=== PATIENT | male | born 1945 | race Caucasian/White ===

== ENCOUNTER 2020-03-17 07:23 | Day surgery (SDC) | payer MEDICARE, OTHER ==
[~2020-03-17 07:23] MED LIST: Cefuroxime 10 MG/ML SYRINGE EYERT SCH; Lidocaine 1% PF 2 ML SDV INJECT SCH; Pilocarpine 4% Ophth Soln 15 ML Bot EYERT SCH
[2020-03-17] MEDS: Polymyxin B/Trimethoprim 10 ML Bottle EYERT SCH ×3 (07:24→08:56)
[2020-03-17] MEDS: Brimonidine 0.2% Ophth Soln 5 ML Bottle EYERT SCH ×3 (07:28→08:56)
[2020-03-17] MEDS: Phenylephrine 2.5% Ophth Soln 15 ML Bot EYERT SCH ×5 (07:33→08:38)
--- NOTE | 2020-03-17 07:34 | PCM.PREANE ---
Preanesthetic Assessment - Anesthesia/Transfusion/Family Hx Anesthesia History: Prior Anesthesia Without Reaction Family History of Anesthesia Reaction: No Transfusion History: Prior Transfusion Without Reaction - Review of Systems General: No Symptoms, Other (high cholesterol) Pulmonary: No Symptoms Cardiovascular: Other (hx of rca stent x3 years ago, HTN) Gastrointestinal: No Symptoms Neurological: Numbness, Tingling - Physical Assessment NPO Status Date: 03/17/20 NPO Status Time: 05:00 ASA Class: 2 Mental Status: Alert & Oriented x3 Dentition: Reports: Dentures, Partial Thyro-Mental Finger Breadths: 3 Mouth Opening Finger Breadths: 3 ROM/Head Extension: Full Lungs: Clear to Auscultation, Normal Respiratory Effort Cardiovascular: Regular Rate, Regular Rhythm - Allergies Allergies/Adverse Reactions: Allergies Allergy/AdvReac Type Severity Reaction Status Date / Time No Known Allergies Allergy Verified 03/16/20 10:17 - Blood Blood Available: No Product(s) Available: None - Anesthesia Plan Pre-Op Medication Ordered: None - Acknowledgements Anesthesia Type Planned: MAC Pt an Appropriate Candidate for the Planned Anesthesia: Yes Alternatives and Risks of Anesthesia Discussed w Pt/Guardian: Yes Pt/Guardian Understands and Agrees with Anesthesia Plan: Yes PreAnesthesia Questionnaire - HOME MEDS Home Medications: Home Meds Aspirin 81 mg PO DAILY 03/16/20 [History] Carboxymethylcellulose Sodium [Artificial Tears] 1 drop EYEBOTH ASDIRECTED PRN 03/16/20 [History] Dutasteride [Avodart] 0.5 mg PO DAILY 03/16/20 [History] Naproxen 1 dose PO ASDIRECTED PRN 03/16/20 [History] Rosuvastatin Calcium 20 mg PO DAILY 03/16/20 [History] Tamsulosin HCl 0.4 mg PO BID 03/16/20 [History] lisinopriL [Lisinopril] 5 mg PO DAILY 03/16/20 [History] - CURRENT (IN HOUSE) MEDS Current Meds: Current Medications Brimonidine Tartrate (Alphagan 0.2% Ophth Soln) 0 ml EYERT ASDIRECTED ARSLAN Stop: 03/17/20 23:00 Cefuroxime Sodium (Zinacef) 0 mg EYERT ASDIRECTED ARSLAN Stop: 03/17/20 23:00 Lidocaine HCl (Xylocaine-Mpf 1%) 0 ml INJECT ASDIRECTED ARSLAN Stop: 03/17/20 23:00 Phenylephrine HCl (Timothy-Synephrine 2.5% Ophth Soln) 0 ml EYERT ASDIRECTED ARSLAN Stop: 03/17/20 23:00 Pilocarpine HCl (Pilocar 4% Ophth Soln) 0 ml EYERT ASDIRECTED ARSLAN Stop: 03/17/20 23:00 Polymyxin/Trimethoprim Sulfate (Polytrim Ophth Soln) 0 ml EYERT ASDIRECTED ARSLAN Stop: 03/17/20 23:00 Last Admin: 03/17/20 07:23 Dose: 1 drop Documented by: Tetracaine HCl (Tetracaine 0.5% Steri-Unit Betsey) 0 ml EYEBOTH ASDIRECTED ARSLAN Stop: 03/17/20 23:00 Tropicamide (Mydriacyl 1% Ophth Soln) 0 ml EYERT ASDIRECTED [facility] Stop: 03/17/20 23:00
[2020-03-17] MEDS: Tropicamide 1% Ophth Soln 15 ML Bottle EYERT SCH ×4 (07:38→08:17)
[2020-03-17] MEDS: Tetracaine HCl/PF 0.5% 4 ML Bottle EYEBOTH SCH ×4 (08:18→08:44)
--- NOTE | 2020-03-17 09:01 | PCM48HPAN ---
Post Anesthesia Note - EVALUATION WITHIN 48HRS OF ANESTHETIC Vital Signs in Normal Range: Yes Patient Participated in Evaluation: Yes Respiratory Function Stable: Yes Airway Patent: Yes Cardiovascular Function Stable: Yes Hydration Status Stable: Yes Pain Control Satisfactory: Yes Nausea and Vomiting Control Satisfactory: Yes Mental Status Recovered: Yes Vital Signs: Last Vital Signs Temp 36.6 C 03/17/20 07:20 Pulse 67 03/17/20 07:20 Resp 16 03/17/20 07:20 BP 125/86 03/17/20 07:20 Pulse Ox 93 L 03/17/20 07:20
--- NOTE | 2020-03-17 09:24 | PCM48HPAN ---
Post Anesthesia Note - EVALUATION WITHIN 48HRS OF ANESTHETIC Vital Signs in Normal Range: Yes Patient Participated in Evaluation: Yes Respiratory Function Stable: Yes Airway Patent: Yes Cardiovascular Function Stable: Yes Hydration Status Stable: Yes Pain Control Satisfactory: Yes Nausea and Vomiting Control Satisfactory: Yes Mental Status Recovered: Yes Vital Signs: Last Vital Signs Temp 97.0 C H 03/17/20 08:58 Pulse 66 03/17/20 08:58 Resp 16 03/17/20 08:58 BP 123/76 03/17/20 08:58 Pulse Ox 99 03/17/20 08:58
== END 2020-03-17 09:10 | disposition home or self-care (01) ==
LOC: JD.SDS 07:23
PROVIDERS: ATTEND Ophthalmology
DX: H25.813 Combined forms of age-related cataract, bilateral (principal); H21.81 Floppy iris syndrome; H21.41 Pupillary membranes, right eye; E78.00 Pure hypercholesterolemia, unspecified; I10 Essential (primary) hypertension; F17.200 Nicotine dependence, unspecified, uncomplicated
CPT/HCPCS: 66982; C1780; J0697; J2001

== ENCOUNTER 2020-04-14 09:14 | Day surgery (SDC) | payer MEDICARE, OTHER ==
[~2020-04-14 09:14] MED LIST changes: +Cefuroxime 10 MG/ML SYRINGE EYELF SCH; -Cefuroxime 10 MG/ML SYRINGE EYERT SCH; +Pilocarpine 4% Ophth Soln 15 ML Bot EYELF SCH; -Pilocarpine 4% Ophth Soln 15 ML Bot EYERT SCH
[2020-04-14] MEDS: Polymyxin B/Trimethoprim 10 ML Bottle EYELF SCH ×3 (09:53→11:41)
[2020-04-14] MEDS: Brimonidine 0.2% Ophth Soln 5 ML Bottle EYELF SCH ×3 (09:59→11:41)
[2020-04-14] MEDS: Phenylephrine 2.5% Ophth Soln 15 ML Bot EYELF SCH ×5 (10:04→11:20)
[2020-04-14] MEDS: Tropicamide 1% Ophth Soln 15 ML Bottle EYELF SCH ×4 (10:16→10:54)
--- NOTE | 2020-04-14 10:47 | PCM.PREANE ---
Preanesthetic Assessment - Procedure Proposed Procedure: Left Cataract extraction with IOL - Anesthesia/Transfusion/Family Hx Anesthesia History: Prior Anesthesia Without Reaction Family History of Anesthesia Reaction: No Transfusion History: Prior Transfusion Without Reaction - Review of Systems General: No Symptoms, Fatigue (Chronic) Pulmonary: No Symptoms (Smoker 1/2 ppd. Denies Cough. ) Cardiovascular: Other (Cardiac stent in 2017 RCA, no problems since. Anticoagulated. ) Gastrointestinal: No Symptoms Neurological: Other (TIA, blood clot in left eye. ) Other: Reports: Easy Bleeding (Anticoagulated due to cardiac stent), Easy Bruising - Physical Assessment NPO Status Date: 04/14/20 NPO Status Time: 05:00 (Water) Height: 1.68 m Weight: 80.739 kg ASA Class: 2 Mental Status: Alert & Oriented x3 Airway Class: Mallampati = 2 Dentition: Reports: Dentures, Partial Thyro-Mental Finger Breadths: 3 Mouth Opening Finger Breadths: 3 ROM/Head Extension: Full Lungs: Clear to Auscultation, Normal Respiratory Effort Cardiovascular: Regular Rate, Regular Rhythm - Allergies Allergies/Adverse Reactions: Allergies Allergy/AdvReac Type Severity Reaction Status Date / Time No Known Allergies Allergy Verified 03/16/20 10:17 - Acknowledgements Anesthesia Type Planned: MAC Pt an Appropriate Candidate for the Planned Anesthesia: Yes Alternatives and Risks of Anesthesia Discussed w Pt/Guardian: Yes Pt/Guardian Understands and Agrees with Anesthesia Plan: Yes PreAnesthesia Questionnaire - HOME MEDS Home Medications: Home Meds Aspirin 81 mg PO DAILY 03/16/20 [History] Carboxymethylcellulose Sodium [Artificial Tears] 1 drop EYEBOTH ASDIRECTED PRN 03/16/20 [History] Dutasteride [Avodart] 0.5 mg PO DAILY 03/16/20 [History] Naproxen 1 dose PO ASDIRECTED PRN 03/16/20 [History] Rosuvastatin Calcium 20 mg PO DAILY 03/16/20 [History] Tamsulosin HCl 0.4 mg PO BID 03/16/20 [History] lisinopriL [Lisinopril] 5 mg PO DAILY 03/16/20 [History] - CURRENT (IN HOUSE) MEDS Current Meds: Current Medications Brimonidine Tartrate (Alphagan 0.2% Oph Sol) 0 ml EYELF ASDIRECTED ARSLAN Stop: 04/14/20 23:00 Last Admin: 04/14/20 09:59 Dose: 1 drop Documented by: Cefuroxime Sodium (Zinacef) 0 mg EYELF ASDIRECTED ARSLAN Stop: 04/14/20 23:00 Lidocaine HCl (Xylocaine-Mpf 1%) 0 ml INJECT ASDIRECTED ARSLAN Stop: 04/14/20 23:00 Phenylephrine HCl (Timothy-Synephrine 2.5% Ophth Soln) 0 ml EYELF ASDIRECTED ARSLAN Stop: 04/14/20 23:00 Last Admin: 04/14/20 10:30 Dose: 1 drop Documented by: Pilocarpine HCl (Pilocar 4% Ophth Soln) 0 ml EYELF ASDIRECTED ARSLAN Stop: 04/14/20 23:00 Polymyxin/Trimethoprim Sulfate (Polytrim Ophth Soln) 0 ml EYELF ASDIRECTED ARSLAN Stop: 04/14/20 23:00 Last Admin: 04/14/20 10:38 Dose: 1 drop Documented by: Tetracaine HCl (Tetracaine 0.5% Steri-Unit Betsey) 0 ml EYEBOTH ASDIRECTED ARSLAN Stop: 04/14/20 23:00 Tropicamide (Mydriacyl 1% Ophth Soln) 0 ml EYELF ASDIRECTED ARSLAN Stop: 04/14/20 23:00 Last Admin: 04/14/20 10:35 Dose: 1 drop Documented by:
[2020-04-14] MEDS: Tetracaine HCl/PF 0.5% 4 ML Bottle EYEBOTH SCH ×2 (11:07→11:26)
--- NOTE | 2020-04-14 11:42 | PCM48HPAN ---
Post Anesthesia Note - EVALUATION WITHIN 48HRS OF ANESTHETIC Vital Signs in Normal Range: Yes Patient Participated in Evaluation: Yes Respiratory Function Stable: Yes Airway Patent: Yes Cardiovascular Function Stable: Yes Hydration Status Stable: Yes Pain Control Satisfactory: Yes Nausea and Vomiting Control Satisfactory: Yes Mental Status Recovered: Yes Vital Signs: Last Vital Signs Temp 36.1 C 04/14/20 09:35 Pulse 67 04/14/20 09:35 Resp 16 04/14/20 09:35 BP 135/96 H 04/14/20 09:35 Pulse Ox 97 04/14/20 09:35
== END 2020-04-14 11:50 | disposition home or self-care (01) ==
LOC: JD.SDS 09:14
PROVIDERS: ATTEND Ophthalmology
DX: H25.812 Combined forms of age-related cataract, left eye (principal); H35.3132 Nonexudative age-related macular degeneration, bilateral, intermediate dry stage; H35.363 Drusen (degenerative) of macula, bilateral; H35.373 Puckering of macula, bilateral; H16.223 Keratoconjunctivitis sicca, not specified as Sjogren's, bilateral; H40.003 Preglaucoma, unspecified, bilateral; H21.81 Floppy iris syndrome; H21.42 Pupillary membranes, left eye; E78.00 Pure hypercholesterolemia, unspecified; I10 Essential (primary) hypertension; F17.210 Nicotine dependence, cigarettes, uncomplicated; Z79.82 Long term (current) use of aspirin; Z79.899 Other long term (current) drug therapy; Z96.1 Presence of intraocular lens; Z98.890 Other specified postprocedural states
CPT/HCPCS: 66982; C1780; J0697